=== PATIENT | female | born 2000 | race Hispanic/Latino ===

== ENCOUNTER 2024-05-05 16:20 | Outpatient (CLI) | payer OTHER, SELFPAY ==
[2024-05-05 16:45] VITALS: BP 133/84; PULSE 114
[2024-05-05 17:00] VITALS: BP 128/74; PULSE 80
[2024-05-05 17:04] LABS: Basophils Percent Auto 0.3 % (0.2-1.2); Eosinophils Absolute Auto 0.1 K/mm3 (0-0.3); Eosinophils Percent Auto 0.5 % (0-4.4); Hematocrit 37.8 % (37.0-47.0); Immature Granulocyte Absolute 0.06 K/mm3 (0.00-0.031); Immature Granulocyte Percent A 0.5 % (0-0.5); Lymphocytes Absolute Auto 1.94 K/mm3 (0.9-3.2); Lymphocytes Percent Auto 17.5 % (18.3-44.2); Mean Corpuscular HGB Conc 34.4 g/dl (32-36); Mean Corpuscular Hemoglobin 30.3 pg (26-34); Mean Corpuscular Volume 88.1 fl (80-100); Mean Platelet Volume 10.9 fl (7.4-10.4); Monocytes Absolute Auto 0.6 K/mm3 (0.1-0.6); Monocytes Percent Auto 5.2 % (2.6-8.5); Neutrophils Absolute Auto 8.4 K/mm3 (1.3-6.7); Platelet Count Result 184 k/mm3 (150-375); Red Blood Count 4.29 M/mm3 (4.2-5.4); Red Cell Distribution Width 12.6 % (11.5-14.5); White Blood Count 11.1 K/mm3 (4.5-10.0)
[2024-05-05 17:14] LABS: Alanine Aminotransferase 18 U/L (6-35); Albumin Level 3.7 g/dL (3.5-5.1); Alkaline Phosphatase 138 U/L (38-126); Anion Gap 8 mmol/L (4-12); Aspartate Amino Transferase 23 U/L (14-36); Bilirubin,Total 0.3 mg/dL (0.2-1.3); Blood Urea Nitrogen 11 mg/dL (7-17); Calcium 9.3 mg/dL (8.4-10.2); Carbon Dioxide 21 mmol/L (22-30); Chloride 99 mmol/L (98-107); Estimated Glomerular Filt Rate > 60; Glucose 96 mg/dL (65-110); Potassium 4.1 mmol/L (3.4-5.0); Sodium 128 mmol/L (137-145); Uric Acid 4.8 mg/dL (2.5-7.5)
[2024-05-05 17:15] VITALS: BP 127/83; PULSE 78
[2024-05-05 17:40] LABS: Add Urine Microscopic? YES; Appearance Urine Clear (Clear); Bacteria Urine 1+ /hpf; Bilirubin Urine Negative (Negative); Blood Urine Negative (Negative); Color Urine Yellow (Yellow); Glucose Urine UA Negative (Negative); Ketones Urine Negative (Negative); Leukocyte Esterase Ur 3+ LEU/UL (Negative); Nitrate Urine Negative (Negative); Non Pathogenic Casts 0-2; Protein Urine Negative (Negative); RBC Urine 0-2 /hpf (0-2); Specific Grav Ur 1.007 (1.001-1.035); Squamous Epithelial Cell Urine Few /hpf (Few); Urobilinogen Urine 0.2 mg/dL (<2.0)
[2024-05-05 18:01] LABS: Creatinine Urine 36.8 mg/dL; Total Protein Urine Random 12 mg/dL; Ur Ttl Prot Creatinine Ratio 0.33 mg/mg (0-0.20)
== END 2024-05-05 18:05 | disposition home or self-care (01) ==
LOC: ANHOBOP 16:38 → ANHLDR 16:40
PROVIDERS: Visit Provider Obstetrics & Gynecology
DX: O13.9 Gestational [pregnancy-induced] hypertension without significant proteinuria, unspecified trimester (principal); Z3A.00 Weeks of gestation of pregnancy not specified
CPT/HCPCS: 36415; 59025; 80053; 81001; 82570; 84156; 84550; 85025; 87086; 99199

== ENCOUNTER 2024-05-28 10:49 | Outpatient (CLI) | payer OTHER, SELFPAY ==
[2024-05-28] VITALS (9 sets, daily range): BP systolic 134–146; BP diastolic 85–94; PULSE 85–104; O2SAT 99
[2024-05-28 11:21] LABS: Basophils Percent Auto 0.4 % (0.2-1.2); Eosinophils Absolute Auto 0.1 K/mm3 (0-0.3); Eosinophils Percent Auto 0.4 % (0-4.4); Hematocrit 38.9 % (37.0-47.0); Hemoglobin 13.7 g/dL (12.0-15.0); Immature Granulocyte Absolute 0.07 K/mm3 (0.00-0.031); Immature Granulocyte Percent A 0.6 % (0-0.5); Lymphocytes Absolute Auto 2.07 K/mm3 (0.9-3.2); Lymphocytes Percent Auto 18.4 % (18.3-44.2); Mean Corpuscular HGB Conc 35.2 g/dl (32-36); Mean Corpuscular Hemoglobin 30.6 pg (26-34); Mean Corpuscular Volume 86.8 fl (80-100); Mean Platelet Volume 11.4 fl (7.4-10.4); Monocytes Absolute Auto 0.7 K/mm3 (0.1-0.6); Monocytes Percent Auto 5.8 % (2.6-8.5); Neutrophils Absolute Auto 8.4 K/mm3 (1.3-6.7); Neutrophils Percent Auto 74.4 % (45.5-73.1); Platelet Count Result 184 k/mm3 (150-375); Red Blood Count 4.48 M/mm3 (4.2-5.4); White Blood Count 11.3 K/mm3 (4.5-10.0)
[2024-05-28 11:31] LABS: Alanine Aminotransferase 15 U/L (6-35); Albumin Level 3.9 g/dL (3.5-5.1); Alkaline Phosphatase 190 U/L (38-126); Anion Gap 8 mmol/L (4-12); Aspartate Amino Transferase 19 U/L (14-36); Bilirubin,Total 0.2 mg/dL (0.2-1.3); Blood Urea Nitrogen 9 mg/dL (7-17); Calcium 9.7 mg/dL (8.4-10.2); Carbon Dioxide 21 mmol/L (22-30); Chloride 105 mmol/L (98-107); Estimated Glomerular Filt Rate > 60; Glucose 88 mg/dL (65-110); Potassium 3.9 mmol/L (3.4-5.0); Sodium 134 mmol/L (137-145); Uric Acid 5.3 mg/dL (2.5-7.5)
[2024-05-28 11:32] LABS: Add Urine Microscopic? YES; Appearance Urine Cloudy (Clear); Bacteria Urine 1+ /hpf; Bilirubin Urine Negative (Negative); Blood Urine Negative (Negative); Color Urine Yellow (Yellow); Glucose Urine UA Negative (Negative); Ketones Urine Negative (Negative); Leukocyte Esterase Ur 2+ LEU/UL (Negative); Nitrate Urine Negative (Negative); Non Pathogenic Casts 0-2; Protein Urine 1+ mg/dL (Negative); RBC Urine 0-2 /hpf (0-2); Specific Grav Ur 1.004 (1.001-1.035); Squamous Epithelial Cell Urine Moderate /hpf (Few); Urobilinogen Urine 0.2 mg/dL (<2.0); pH Urine 7.5 (5.0-9.0)
[2024-05-28 11:41] LABS: Creatinine Urine 17.7 mg/dL; Total Protein Urine Random 45 mg/dL; Ur Ttl Prot Creatinine Ratio 2.54 mg/mg (0-0.20)
--- NOTE | 2024-05-28 11:58 | PC.NURSE ---
This RN showed Dr. Nickie Weaver all lab results, strips, BP readings at Nurses station. MD reviewed, would like patient to be discharged at this time. RN reviewed orders back to confirm.
== END 2024-05-28 12:39 | disposition home or self-care (01) ==
LOC: ANHOBOP 10:55 → ANHOBPP 10:56
PROVIDERS: Visit Provider Obstetrics & Gynecology
DX: O13.9 Gestational [pregnancy-induced] hypertension without significant proteinuria, unspecified trimester (principal); Z3A.00 Weeks of gestation of pregnancy not specified
CPT/HCPCS: 36415; 59025; 80053; 81001; 82570; 84156; 84550; 85025; 87086; 99199

== ENCOUNTER 2024-05-29 16:06 | Inpatient (IN) | payer OTHER, SELFPAY ==
[2024-05-29] VITALS (30 sets, daily range): BP systolic 110–158; BP diastolic 63–106; PULSE 70–127; TEMP 36.2–36.5; BMI 31.2
[2024-05-29 17:26] LABS: Basophils Percent Auto 0.3 % (0.2-1.2); Eosinophils Absolute Auto 0.1 K/mm3 (0-0.3); Eosinophils Percent Auto 0.5 % (0-4.4); Hematocrit 39.8 % (37.0-47.0); Hemoglobin 13.9 g/dL (12.0-15.0); Immature Granulocyte Absolute 0.07 K/mm3 (0.00-0.031); Immature Granulocyte Percent A 0.6 % (0-0.5); Lymphocytes Absolute Auto 2.02 K/mm3 (0.9-3.2); Mean Corpuscular HGB Conc 34.9 g/dl (32-36); Mean Corpuscular Hemoglobin 30.3 pg (26-34); Mean Corpuscular Volume 86.9 fl (80-100); Mean Platelet Volume 11.7 fl (7.4-10.4); Monocytes Absolute Auto 0.6 K/mm3 (0.1-0.6); Monocytes Percent Auto 5.5 % (2.6-8.5); Neutrophils Absolute Auto 8.4 K/mm3 (1.3-6.7); Neutrophils Percent Auto 75.1 % (45.5-73.1); Platelet Count Result 180 k/mm3 (150-375); Red Blood Count 4.58 M/mm3 (4.2-5.4); Red Cell Distribution Width 13.1 % (11.5-14.5); White Blood Count 11.2 K/mm3 (4.5-10.0)
[2024-05-29] MEDS: DINOPROSTONE 10 MG VAG INSERT VAGINAL (17:42)
[2024-05-29 17:43] LABS: Alanine Aminotransferase 15 U/L (6-35); Albumin Level 3.9 g/dL (3.5-5.1); Alkaline Phosphatase 186 U/L (38-126); Anion Gap 10 mmol/L (4-12); Aspartate Amino Transferase 20 U/L (14-36); Bilirubin,Total 0.3 mg/dL (0.2-1.3); Blood Urea Nitrogen 13 mg/dL (7-17); Calcium 9.8 mg/dL (8.4-10.2); Carbon Dioxide 19 mmol/L (22-30); Chloride 105 mmol/L (98-107); Estimated Glomerular Filt Rate > 60; Glucose 87 mg/dL (65-110); Potassium 3.8 mmol/L (3.4-5.0); Sodium 134 mmol/L (137-145); Uric Acid 5.5 mg/dL (2.5-7.5)
--- NOTE | 2024-05-29 18:14 | LDADM ---
This patient, Romy Dickerson, was admitted to Labor/Delivery/Recovery 108 on 05/29/24 at 16:06. Plans for labor, pain management and were discussed with patient. Patient/family oriented to hospital policies and general routines including ID bracelet, bed and alarms, visiting hours, pain management, procedures, bathroom and other care routines, personal items, smoking policy, room service/diet and guest tray routines, security routines, and visiting hours. Patient/Family are encouraged to report perceived risks to care and to ask questions if they do not understand what they are told or what they should do. See OBIX for further documentation.
[2024-05-29 18:19] LABS: Rapid Plasma Reagin Non-Reactive (NonReactive)
[2024-05-29 18:35] LABS: HIV 1/2 Ab P24 Ag Result Negative (Negative)
[2024-05-29] MEDS: ZOLPIDEM TARTRATE (*CRX) 5 MG TABLET PO (21:49)
[2024-05-30] VITALS (78 sets, daily range): BP systolic 73–150; BP diastolic 39–99; PULSE 66–133; RESP 12–18; TEMP 36.3–37; O2SAT 96–100
[2024-05-30] MEDS: LACTATED RINGERS 1,000 ML 125 ML IV CONT ×2 (01:30→05:26)
[2024-05-30] MEDS: fentaNYL CITRATE INJ (*CRX) 100 MCG/2 ML VIAL 50 MCG IV PUSH (02:01)
--- NOTE | 2024-05-30 05:26 | WPDANESEPPF ---
Anes - Initial Pre Proc Eval Date/Time: 05/30/24 05:26 Surgeon: Otoniel Weaver MD Pre Op Diagnosis: Induction of Labor Patient Data Age: 23 Gender: F Height: 1.6 m Weight: 80 kg Last Vital Signs Temp 36.6 C 05/30/24 01:30 Pulse 105 H 05/30/24 05:25 BP 91/41 L 05/30/24 05:25 Pulse Ox 99 05/30/24 05:25 O2 Del Method Room Air 05/29/24 18:11 Allergies Allergy/AdvReac Type Severity Reaction Status Date / Time amoxicillin Allergy Hives Verified 05/05/24 14:38 Penicillins Allergy Hives Verified 05/05/24 14:38 Home Medications Medication Instructions Recorded Confirmed Type vits no.126-ferrous fum 1 tablet PO DAILY 05/05/24 05/28/24 History 28 mg iron-folic acid 800 mcg tablet (Classic ) Laboratory Tests 05/29/24 05/29/24 05/29/24 17:12 17:12 17:13 WBC 11.2 H K/mm3 (4.5-10.0) RBC 4.58 M/mm3 (4.2-5.4) Hgb 13.9 g/dL (12.0-15.0) Hct 39.8 % (37.0-47.0) MCV 86.9 fl (80-100) MCH 30.3 pg (26-34) MCHC 34.9 g/dl (32-36) RDW 13.1 % (11.5-14.5) Plt Count 180 k/mm3 (150-375) MPV 11.7 H fl (7.4-10.4) Immature Gran % (Auto) 0.6 H % (0-0.5) Neut % (Auto) 75.1 H % (45.5-73.1) Lymph % (Auto) 18.0 L % (18.3-44.2) [place] % (Auto) 5.5 % (2.6-8.5) Eos % (Auto) 0.5 % (0-4.4) Baso % (Auto) 0.3 % (0.2-1.2) Lymph # (Auto) 2.02 K/mm3 (0.9-3.2) [place] # (Auto) 0.6 K/mm3 (0.1-0.6) Eos # (Auto) 0.1 K/mm3 (0-0.3) Baso # (Auto) 0.0 K/mm3 (0.0-0.1) Abs Immat Gran (auto) 0.07 H K/mm3 (0.00-0.031) Absolute Neuts (auto) 8.4 H K/mm3 (1.3-6.7) Absolute Nucleated RBC 0.000 K/mm3 (0.0-0.012) Nucleated RBC % 0.0 % (0.0-0.2) Sodium 134 L mmol/L (137-145) Potassium 3.8 mmol/L (3.4-5.0) Chloride 105 mmol/L (98-107) Carbon Dioxide 19 L mmol/L (22-30) Anion Gap 10 mmol/L (4-12) BUN 13 mg/dL (7-17) Creatinine 0.70 mg/dL (0.7-1.0) Estim Creat Clear Calc Not Reportable Estimated GFR > 60 (59 - ) Glucose 87 mg/dL (65-110) Uric Acid Cancelled 5.5 mg/dL (2.5-7.5) Calcium 9.8 mg/dL (8.4-10.2) Total Bilirubin 0.3 mg/dL (0.2-1.3) AST 20 U/L (14-36) ALT 15 U/L (6-35) Alkaline Phosphatase 186 H U/L (38-126) Total Protein 7.0 g/dL (6.3-8.2) Albumin 3.9 g/dL (3.5-5.1) RPR Non-reactive (NonReactive) HIV 1&2 Ab/P24 Ag 4thGn Negative (Negative) Blood Type O Positive Antibody Screen Negative Patient hx anesthesia problems: none Family hx anesthesia problems: none Results Review: All pre-operative results and documents have been reviewed as part of the pre-operative evaluation. [facility] Family History Family History Other No pertinent family history Social History Social History Smoking status: Never smoker Substance use: never Do You Feel Safe in your Home?: Yes Lack of Transportation: No Lack of Food: Never True Current Housing: I Do Not Have Housing Concerned About Future Housing: No Difficulty Paying Gas/Electric Bills: No Difficulty Paying for Meds: No Currently Unemployed: No Education: Bachelor's Degree Difficulty w/ Childcare or Family Care: No Spiritual care concerns: No Anes - Eval Final PreProcedure Day of Procedure 05/30/24 05:26 Patient weight: obese Neurological: alert and oriented ASA classification: II Emergent: no Anesthetic plan: proceed Anesthesia type and monitoring: regional epidural and standa
[2024-05-30] MEDS: PHENYLEPHRINE 1,000 MCG/10 ML SYRINGE 100 MCG IV PUSH (05:28)
--- NOTE | 2024-05-30 07:21 | PM.IMHP ---
H&P: HPI History of Present Illness Date/Time: 05/30/24 07:21 Chief Complaint: Elevated blood pressures at term Narrative: 23-year-old primigravid patient admitted at term for induction of labor secondary to elevated blood pressure. Her had been uncomplicated until the last few weeks with her pressure pressures were elevated pH labs were negative she is presently completely dilated PMFSH Family History Family History Other No pertinent family history Social History Social History Smoking status: Never smoker Substance use: never Do You Feel Safe in your Home?: Yes Lack of Transportation: No Lack of Food: Never True Current Housing: I Do Not Have Housing Concerned About Future Housing: No Difficulty Paying Gas/Electric Bills: No Difficulty Paying for Meds: No Currently Unemployed: No Education: Bachelor's Degree Difficulty w/ Childcare or Family Care: No Spiritual care concerns: No Meds Home Medications and Allergies Home Medications Medication Instructions Recorded Confirmed Type vits no.126-ferrous fum 1 tablet PO DAILY 05/05/24 05/28/24 History 28 mg iron-folic acid 800 mcg tablet (Classic ) Allergies Allergy/AdvReac Type Severity Reaction Status Date / Time amoxicillin Allergy Hives Verified 05/05/24 14:38 Penicillins Allergy Hives Verified 05/05/24 14:38 Vital Signs Vital Signs - 24 hr 05/29/24 16:28 05/29/24 16:30 05/29/24 17:00 Temperature Pulse Rate 115 H 127 H 118 H Blood Pressure 158/96 H 136/97 H 147/97 H Pulse Oximetry Oxygen Delivery 05/29/24 17:31 05/29/24 17:45 05/29/24 18:00 Temperature Pulse Rate 94 94 92 Blood Pressure 135/93 H 132/106 H 130/91 H Pulse Oximetry Oxygen Delivery 05/29/24 18:15 05/29/24 18:30 05/29/24 18:45 Temperature 97.1 F L Pulse Rate 80 82 70 Blood Pressure 128/90 124/89 126/83 Pulse Oximetry Oxygen Delivery 05/29/24 19:00 05/29/24 19:15 05/29/24 19:30 Temperature Pulse Rate 90 86 89 Blood Pressure 125/84 130/82 129/75 Pulse Oximetry Oxygen Delivery 05/29/24 19:46 05/29/24 20:02 05/29/24 20:15 Temperature Pulse Rate 71 80 94 Blood Pressure 110/67 129/88 127/82 Pulse Oximetry Oxygen Delivery 05/29/24 20:30 05/29/24 20:45 05/29/24 21:01 Temperature Pulse Rate 111 H 101 H 78 Blood Pressure 133/88 121/82 116/73 Pulse Oximetry Oxygen Delivery 05/29/24 21:16 05/29/24 21:31 05/29/24 21:46 Temperature Pulse Rate 97 82 78 Blood Pressure 131/85 132/79 130/74 Pulse Oximetry Oxygen Delivery 05/29/24 21:30 05/29/24 22:00 05/29/24 22:16 Temperature 97.7 F Pulse Rate 88 78 Blood Pressure 121/74 129/74 Pulse Oximetry Oxygen Delivery 05/29/24 22:31 05/29/24 22:46 05/29/24 23:00 Temperature Pulse Rate 75 105 H 90 Blood Pressure 130/77 129/86 127/81 Pulse Oximetry Oxygen Delivery 05/29/24 23:16 05/29/24 23:30 05/29/24 23:46 Temperature Pulse Rate 91 106 H 86 Blood Pressure 124/63 137/83 122/71 Pulse Oximetry Oxygen Delivery 05/30/24 00:01 05/30/24 00:15 05/30/24 00:30 Temperature Pulse Rate 100 90 72 Blood Pressure 125/99 H 130/81 132/84 Pulse Oximetry Oxygen Delivery 05/30/24 00:45 05/30/24 01:00 05/30/24 01:16 Temperature Pulse Rate 88 89 78 Blood Pressure 139/80 130/92 H 150/85 H Pulse Oximetry Oxygen Delivery 05/30/24 01:30 05/30/24 01:46 05/30/24 02:01 Temperature 97.8 F Pulse Rate 111 H 84 75 Blood Pressure 133/84 126/78 138/82 Pulse Oximetry Oxygen Delivery 05/30/24 02:16 05/30/24 02:31 05/30/24 02:46 Temperature Pulse Rate 94 88 88 Blood Pressure 128/78 132/78 120/73 Pulse Oximetry Oxygen Delivery 05/30/24 03:00 05/30/24 03:16 05/30/24 03:31 Temperature
[2024-05-30] MEDS: OXYTOCIN 30 UNITS/NS 500 ML 30 UNITS/500 ML BAG 6 UNITS IV CONT (07:50)
[2024-05-30] MEDS: OXYTOCIN 30 UNITS/NS 500 ML 30 UNITS/500 ML BAG 125 UNITS IV CONT (08:33)
--- NOTE | 2024-05-30 08:43 | PM.OBPRVD ---
OB - Vaginal Delivery Note Procedure Delivery date: 05/30/24 Events: Gestational Hypertension Induction method: Per Cervidil Protocol Delivery augmentation: Pitocin Delivery monitor: External FHT and External Uterine Route of delivery: Episiotomy description: None Laceration Description: None Quantitative Blood Loss (ml): 61 Anesthesia type: Epidural Disposition: Floor Complications: No immediate complications [place] Baby Date of : 05/30/24 Time of : 07:44 Gestational Age by Date: 39 Infant gender: Female presentation: vertex position: Right Occiput Anterior Placenta delivery description: Spontaneous Cord Vessel Description: 3 Vessels score one minute: 9 score five minutes: 9
--- NOTE | 2024-05-30 08:45 | PM.DS ---
DS: Admitting Diagnosis Discharge Date 06/01/2024 Admitting Diagnosis gestational hypertension/term DS: Discharge Diagnosis Discharge Diagnosis (1) Gestational hypertension: Code(s): O13.9 - Gestational [-induced] hypertension without significant proteinuria, unspecified trimester Status: Acute (2) Term : Code(s): Z34.90 - Encounter for supervision of normal , unspecified, unspecified trimester Status: Acute DS: Summary Hospital Course Reason for hospitalization: patient was admitted at39+ weeks gestation for gestational hypertension. She underwent spontaneous vaginal delivery 05/30/2024 Hospital Course: hospital course she was up, eating regular diet ambulating voiding without difficulty and generally without complaints Time Spent with Patient Time attestation: Total time spent providing and/or coordinating discharge services: Exam Const: General: cooperative, healthy appearing, comfortable and average body habitus Orientation/consciousness: oriented to person, oriented to place and oriented to time HENMT: Head: normal to inspection Resp: Effort & Inspection: normal respiratory effort Cardio: Rate: regular rate Rhythm: regular rhythm Heart sounds: S1 normal heart sound present and S2 normal heart sound present GI: Inspection: normal to inspection DS: Data Data Completed and Pending Labs on day of discharge: Labs from last 24 hours 05/29/24 05/29/24 05/29/24 17:13 17:12 17:12 WBC 11.2 H RBC 4.58 Hgb 13.9 Hct 39.8 MCV 86.9 MCH 30.3 MCHC 34.9 RDW 13.1 Plt Count 180 MPV 11.7 H Immature Gran % (Auto) 0.6 H Neut % (Auto) 75.1 H Lymph % (Auto) 18.0 L [place] % (Auto) 5.5 Eos % (Auto) 0.5 Baso % (Auto) 0.3 Lymph # (Auto) 2.02 [place] # (Auto) 0.6 Eos # (Auto) 0.1 Baso # (Auto) 0.0 Abs Immat Gran (auto) 0.07 H Absolute Neuts (auto) 8.4 H Absolute Nucleated RBC 0.000 Nucleated RBC % 0.0 Sodium 134 L Potassium 3.8 Chloride 105 Carbon Dioxide 19 L Anion Gap 10 BUN 13 Creatinine 0.70 Estim Creat Clear Calc Not Reportable Estimated GFR > 60 Glucose 87 Uric Acid 5.5 Cancelled Calcium 9.8 Total Bilirubin 0.3 AST 20 ALT 15 Alkaline Phosphatase 186 H Total Protein 7.0 Albumin 3.9 RPR Non-reactive HIV 1&2 Ab/P24 Ag 4thGn Negative Blood Type O Positive Antibody Screen Negative Discharge Plan Discharge Attending physician on discharge: Otoniel Malik Discharging Clinician: Otoniel Malik Patient Disposition: Home, Self-Care Activity: may shower, may drive after 2 weeks and pelvic rest Diet: regular Wound Care Instructions: follow printed instructions Discharge Instructions: Call or return if temperature above 100.4? F, increased abdominal pain, increased vaginal bleeding or any new problems. Education: Mom and Baby Guide Given to: Mother Follow-Up: Call your delivering provider's office for an appointment to be seen in: 6 Weeks Mom and baby should come to the [facility] for the follow-up appointment. Appointment Date/Time: June 02, 2024 at 10:00 am What to expect at your follow-up visit: Physical Assessment Call [phone] if you are unable to keep your appointment time. BREAST CARE: * Wear a snug supportive bra. * For engorgement discomfort: Breast Feeding: * Apply warm moist washcloths * Express milk as needed to relieve engorgement * Wear loose clothing Bottle Feeding: * May apply ice packs * For sore nipples: * Identify correct latch-on * Apply warm moist washcloths before and after nursing * Air dry nipples after nursing * May apply Lansinoh cream to nipples PERINEAL CARE: * Until bleeding stops, use your adalberto bottle after urinating *
[2024-05-30] MEDS: WITCH HAZEL 40 PADS 1 PAD TOPICAL (10:10)
[2024-05-30] MEDS: BENZOCAINE 20% AER SPR (*SP) 56 GM CAN 1 SPRAY TOPICAL (10:10)
--- NOTE | 2024-05-30 10:27 | OBPPTRN ---
Patient transferred to post room # 281 via wheelchair. Support person present. Oriented to unit, room, information board, rooming in, admission packet and security measures. Patient verbalizes understanding.
--- NOTE | 2024-05-30 16:05 | PC.NURSE ---
1300- Went to patient room to assess need for assistance and mom had baby at the breast. She was using the cradle hold on the left breast and I showed her how to make a sandwich with her breast to facilitate a deeper latch for baby. Mom does a great job handling baby and working with her to get a deep latch. Baby came off the nipple a few times and mom was able to latch again independently with encouragement. We will work on the right breast at the next feeding because mom has struggled with that side. The right nipple is less everted and has an uneven texture with a bump on the underside, possibly an accessory nipple. Discussed that that area could rub in baby's mouth and become sore due to the fact that it sticks out further on the underside. Mom will call at the next feeding for assistance. 1605- Mother called out for assistance with feeding on the right breast. We tried cradle and then switched to football. Reviewed positioning and alignment, supporting breast, off-centered (asymmetrical latch) and leading with the chin with big, open, wide gape. Infant latched optimally to the [right] breast in [football] position. Education given to the mother of how to visualize the suckling (with good rocking jaw motion) swallows. The infant was [able] to maintain latch without discomfort to mother. Mom latched baby with minimal assistance. Encouraged her that she is doing very well making a bite for baby and maintaining the deep latch. Mother voiced understanding of the education shared, to call for assistance if the does not latch or if there is discomfort with . Reported to the Primary RN.
[2024-05-31 04:20] VITALS: BP 120/78; PULSE 75; RESP 18; O2SAT 98
[2024-05-31 04:20] LABS: Hematocrit 38.4 % (37.0-47.0)
--- NOTE | 2024-05-31 08:27 | PM.OBPNVD ---
OB - PN: Subj Subjective Date/time seen: 05/31/24 08:27 Narrative: Pain OK. Would like to go home. OB - PN: Obj Data Labs 05/31/24 04:11 05/29/24 17:12 Labs: Laboratory Results - last 24 hr 05/31/24 04:11 Hgb 13.0 Hct 38.4 OB - PN A/P Plan day: 1 Comments: A: PPD#1, doing well. P: Home to f/u 6 weeks. Exam Psych: Other: AVSS ABD soft, nontender, fundus firm EXT nontender
[2024-05-31 08:45] VITALS: BP 111/70; PULSE 78; RESP 16; TEMP 36.3; O2SAT 99
[2024-05-31] MEDS: LANOLIN (LANSINOH) 7.5 GM CREAM 1 APPLIC TOPICAL (08:53)
[2024-05-31] MEDS: MULTIVIT/MIN/PREN/FOL AC/IRON TABLET 1 TAB PO (08:53)
[2024-05-31] MEDS: DOCUSATE SODIUM 100 MG CAPSULE PO (08:53)
--- NOTE | 2024-05-31 10:40 | PC.NURSE ---
Consulted with mother concerning needs and she shared her ability to independently latch infant optimally without pain. Mother is feeding appropriately for growth of infant and understands stimulating to eat if needed. Infant has had appropriate feedings in the last 24 hours meets the outcomes for weight, output, blood sugar and jaundice at this time. We reviewed her Spectra pump and sized her for flanges (24mm). Patient received a boolet and infographic handouts about pumping and common issues. Reinforced understanding of milk production, transition of milk, signs of adequate intake, transition of stool, prevention/relief of engorgement, plugged ducts, mastitis, responsive watching for feeding cues, the different methods of stimulating infant to breastfeed 1-3 hours after the start of the last feeding, community resources, and when to call a provider using the resource of the feeding sheet along with the mom and baby guide. Mother voiced understanding of the information shared, is confident to continue effectively her at home, when to call for assistance, denies any additional assistance or education at this time. Reported to the Primary RN.
--- NOTE | 2024-05-31 10:45 | PC.NURSE ---
Patient viewed the discharge video Mother & Baby Care, The First Two Weeks . Patient was given the opportunity and encouraged to ask questions. Patient verbalized understanding of information shared and has been given the mother/baby guide for home reference.
--- NOTE | 2024-05-31 12:19 | WPDANLDPN2 ---
Anes-Prog Note L&D Date/Time: 05/31/24 12:19 Comfortable throughout: labor and delivery Neuraxial method: epidural Epidural/Spinal procedure site: tender Neuro status: Neuro function grossly intact. Cardiovascular status: normal Respiratory status: normal Airway patency: baseline Mental status: baseline Post-Op hydration status: normal Vital Signs: Last Vital Signs Temp 36.3 C L 05/31/24 08:45 Pulse 78 05/31/24 08:45 Resp 16 05/31/24 08:45 BP 111/70 05/31/24 08:45 Pulse Ox 99 05/31/24 08:45 O2 Del Method Room Air 05/29/24 18:11 Pain score (VAS): 3/10 Post-procedural complaints: none Patient feedback: Patient satisfied with anesthetic care.
[2024-05-31] MEDS: INFLUENZA TRIVALENT VACCINE 45 MCG/0.5 ML SYRINGE IM (12:47)
[2024-06-02 10:40] VITALS: BP 140/92; PULSE 100; RESP 18; TEMP 36.9; O2SAT 100
== END 2024-05-31 13:30 | disposition home or self-care (01) | DRG 807 ==
LOC: ANHLDR 05-30 08:48 → ANHOB2 05-31 12:39 → ANHLDR 06-02 11:17 → ANHOB2 06-02 11:17
PROVIDERS: Admitting Provider Obstetrics & Gynecology; Visit Provider Obstetrics & Gynecology
DX: O62.3 Precipitate labor (principal); Z37.0 Single live birth; O13.4 Gestational [pregnancy-induced] hypertension without significant proteinuria, complicating childbirth; Z3A.39 39 weeks gestation of pregnancy; Z23 Encounter for immunization
CPT/HCPCS: 36415; 59025; 80053; 81001; 82570; 84156; 84550; 85014; 85018; 85025; 86592; 86703; 86850; 86900; 86901; 87086; 90471; 90656; 99199; A9270; G0008; G0432; J2371; J2590; J2795; J3010; J7120